=== PATIENT | female | born 1985 | race Caucasian/White ===

== ENCOUNTER 2017-09-09 09:04 | Inpatient (IN) | payer OTHER ==
--- NOTE | 2017-09-09 09:16 | PDOC ---
Attending Attestation - HPI HPI: 09/09/17 11:04 The patient is a 32 year old female with no significant PMH who presents to the emergency department with 10/10 rectal pain and abdominal pain since yesterday noon. The patient denies chest pain, headache and dizziness. Denies nausea, vomit, diarrhea and constipation. Allergies: NKA Past surgical history: None reported Social history: No reported alcohol, cigarette or drug abuse. PCP: Dr. Quiles RFID SPECIALIST: Dr. Zambrano - Physicial Exam PE: 09/09/17 11:05 Vitals: Triage Vital signs reviewed General Appearance: no acute distress, well nourished well developed, Head: Atraumatic, normocephalic Neck: Supple;No Nuchal rigidity Chest Wall: Nontender Cardiac: Regular rate and rhythm, no murmurs, no rubs, no gallops, Lungs: Clear to auscultation bilateral, good air movement bilaterally, Abdomen: Soft, nondistended, normal bowel sounds, nontender to palpation Rectal: (+) Tender to palpation. Pelvic: (+) CMT with discharge. Extremities: Full range of motion to all extremities, no cyanosis, clubbing, or edema Skin: Warm and dry, no rashes or lesions, no petechiae Neuro: AOX3; Cranial Nerves 2-12 grossly intact. Psych: normal mood, normal affect - Medical Decision Making 09/09/17 11:13 Labs: CBC, Chlamydia/GC amplification, Differential stat, HCG, Lactic acid Stat , UA, Urine microscopic CT Scan: Abdomen and pelvis CT w/ contrast Medications: Cefoxitin Sodium, Doxycycline, Morphine, Sodium chloride <Katty Rivera - Last Filed: 09/09/17 11:04> - ED Attending Attestation I have performed the following: I have examined & evaluated the patient, The case was reviewed & discussed with the resident, I agree w/resident's findings & plan, Exceptions are as noted - Medical Decision Making 09/09/17 18:43 History and examination consistent with PID secondary to infected IUD IUD removed in the emergency department given fever elevated white blood cell count patient started on empiric antibiotics with doxycycline and cefoxitin Patient's [employer] aware Admitted to medicine for further management. <Florentin West - Last Filed: 09/09/17 18:43>
--- NOTE | 2017-09-09 09:28 | PDOC ---
History of Present Illness - General Chief Complaint: Pain, Acute Stated Complaint: PAIN Time Seen by Provider: 09/09/17 09:12 History Source: Patient - History of Present Illness Initial Comments: 09/09/17 09:26 32F with no PMH presents with 10/10 abdominal pain and rectal pain since yesterday noon. Exacerbated by sitting down and moving bowels and urination. Thinks it's from IUD placed in December. Delivered baby in November. Normal amount of bm or urination, no presence of blood. Last period 2 weeks ago. 09/09/17 09:59 Past History - Past Medical History Allergies/Adverse Reactions: Allergies Allergy/AdvReac Type Severity Reaction Status Date / Time No Known Allergies Allergy Verified 09/09/17 09:05 Home Medications: Ambulatory Orders NK [No Known Home Medication] 09/09/17 Asthma: No Cancer: No Cardiac Disorders: No COPD: No DVT: No Diabetes: No HTN: No Seizures: No Thyroid Disease: No - Immunization History Immunization Up to Date: Yes - Suicide/Smoking/Psychosocial Hx Smoking History: Never smoked Have you smoked in the past 12 months: No Information on smoking cessation initiated: No Hx Alcohol Use: No Drug/Substance Use Hx: No Substance Use Type: None Hx Substance Use Treatment: No Review of Systems - Review of Systems Constitutional: No: Symptoms Reported HEENTM: No: Symptoms Reported Respiratory: No: Symptoms reported Cardiac (ROS): No: Symptoms Reported ABD/GI: Yes: Abd. Pain w/ defecation, Blood Streaked Bowels, Abdominal cramping. No: Abdominal Distended, Constipated, Diarrhea, Rectal Bleeding, Tarry Stools : No: Dysuria, Discharge, Frequency Musculoskeletal: No: Symptoms Reported Integumentary: No: Symptoms Reported All Other Systems: Reviewed and Negative *Physical Exam - Vital Signs Last Vital Signs Temp Pulse Resp BP Pulse Ox 98.2 F 127 H 16 116/72 99 09/09/17 09:07 09/09/17 09:07 09/09/17 09:07 09/09/17 09:07 09/09/17 09:07 - Physical Exam General Appearance: Yes: Nourished, Appropriately Dressed, Moderate Distress, Thin HEENT: positive: EOMI, GLENNY, Normal ENT Inspection Neck: negative: Tender Respiratory/Chest: positive: Lungs Clear, Normal Breath Sounds. negative: Chest Tender, Respiratory Distress Cardiovascular: positive: Regular Rate, S1, S2, Tachycardia Female Pelvic Exam: positive: normal external exam, discharge (cervical purulent discharge), uterus (hard ). negative: cervical os closed (1-2mm open) , vaginal bleeding Gastrointestinal/Abdominal: positive: Tender (diffusely, kiara. LLQ), Soft, Rebound, Tenderness Rectal Exam: positive: hemorrhoids Extremity: positive: Normal Capillary Refill Integumentary: positive: Normal Color, Dry, Warm Neurologic: positive: Fully Oriented, Alert, Normal Mood/Affect, Respond to painful stimul ED Treatment Course - LABORATORY CBC & Chemistry Diagram: 09/09/17 10:00 09/09/17 10:00 Medical Decision Making - Medical Decision Making 09/09/17 12:21 32F present with severe 10/10 lower abdominal pain and purulent cervical discharge. This is likely PID 2/2 IUD-borne infection. CBC, CMP septic set ordered UA IUD removed, with large quantities of pus present. Ct abdomen: Free fluid and cystic changes within the pelvis. PID is suspected and a follow- up pelvic sonogram is recommended. 09/09/17 14:[address] Antony, as her obgyn dr. Zambrano is unavailable. Admit to inpatient on IV antibiotics. 09/09/17 14:03 09/09/17 14:15 *DC/Admit/Observation/Transfer Diagnosis at time of Disposition: Acute PID (pelvic inflammatory disease) - Discharge Dispostion Admit: Yes - Referrals - Patient Instructions - Post Discharge Activity
[2017-09-09] MEDS ORDERED: morphine CARPU-JECT 4 MG/1 ML DISP.SYRIN IVPUSH ONE (09:40)
[2017-09-09 09:53] LABS: URINE APPEARANCE SLCLOUDY; URINE BILIRUBIN NEGATIVE (NEGATIVE); URINE BLOOD NEGATIVE (NEGATIVE); URINE COLOR YELLOW; URINE GLUCOSE (UA) NEGATIVE (NEGATIVE); URINE KETONE NEGATIVE (NEGATIVE); URINE NITRITE NEGATIVE (NEGATIVE); URINE UROBILINOGEN NEGATIVE mg/dL (0.2-1.0)
[2017-09-09 09:55] LABS: URINE PROTEIN 1+ (NEGATIVE)
[2017-09-09 09:57] LABS: URINE MUCUS RARE; URINE RBC 1 /hpf (0-3); URINE WBC 1 /hpf (3-5)
[2017-09-09] MEDS ORDERED: morphine SULFATE 4 MG/ML VIAL ONE (10:00)
[2017-09-09 10:15] LABS: MCH 27.1 pg (25.7-33.7); MCHC 32.2 g/dl (32.0-36.0); MEAN CELL VOLUME 84.4 fl (80-96); MEAN PLT VOLUME 8.1 fl (7.5-11.1); PLATELET COUNT 376 K/MM3 (134-434); RDW 13.1 % (11.6-15.6); WHITE BLOOD COUNT 24.7 K/mm3 (4.0-10.0)
[2017-09-09] MEDS ORDERED: cefOXitin SODIUM 2 GM VIAL (RESTRICTED TO ID) IVPB ONE (10:18)
[2017-09-09] MEDS ORDERED: DOXYCYCLINE INJECTION 100 MG in DEXTROSE 5%-WATER - 100 ML IVPB ONE (10:18)
[2017-09-09 10:37] LABS: ALBUMIN 3.4 g/dl (3.4-5.0); ALK PHOS 85 U/L (45-117); ANION GAP 8 (8-16); BILIRUBIN,TOTAL 0.5 mg/dL (0.2-1.0); CALCIUM 8.3 mg/dL (8.5-10.1); CO2 25 mmol/L (21-32); CREATININE 0.7 mg/dL (0.55-1.02); GLUCOSE,RANDOM 105 mg/dL (74-106); SGOT/AST 12 U/L (15-37); TOT PROT 7.7 g/dl (6.4-8.2)
[2017-09-09 10:48] LABS: SGPT/ALT 19 U/L (12-78)
[2017-09-09] MEDS ORDERED: ACETAMINOPHEN 325 MG TABLET (FP) ONE (11:03)
[2017-09-09] MEDS ORDERED: SODIUM CHLORIDE 2,000 ML IV STA (11:04)
[2017-09-09 11:12] LABS: TOTAL CELLS COUNTED 100
[2017-09-09 11:13] LABS: PLATELET ESTIMATE ADEQUATE
[2017-09-09 11:47] LABS: INR 1.26 (0.82-1.09); PROTHROMBIN TIME (PATIENT) 14.2 SEC (9.98-11.88)
[2017-09-09 11:49] LABS: ACTIVATED PTT 33.6 SECONDS (26.9-34.4)
[2017-09-09 14:23] LABS: URINE LEUK ESTERASE Negative (NEGATIVE)
[2017-09-09] MEDS ORDERED: SODIUM CHLORIDE 1,000 ML IV STA (14:25)
--- NOTE | 2017-09-09 14:35 | HP ---
CHIEF COMPLAINT: abdominal pain PCP: HISTORY OF PRESENT ILLNESS: 32 year old female presents to the emergency room with complaints of severe pelvic/abdominal and rectal pain 8/10, sharp, non radiating and fever, chills since last night. Patient denies GODOY, n, v, cp, sob, n/v/d, vaginal discharge/ odor, vaginal bleed. Patient had an IUD placed in January 2017. She does endorse mild abdominal pain for the past two months. She went to her [facility], for abdominal pain, no intervention at that time. ER course was notable for: Febrile with leukocytosis. ED resident removed IUD. As per resident there was purulent, foul discharge coming out of vagina. Patient received IVF, and IV antibiotics cefoxitin and doxycycline. 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 Absent: diaphoresis, generalized weakness, malaise, loss of appetite, weight change HEENT: Absent: rhinorrhea, nasal congestion, throat pain, throat swelling, difficulty swallowing, mouth swelling, ear pain, eye pain, visual changes CARDIOVASCULAR: Absent: chest pain, syncope, palpitations, irregular heart rate, lightheadedness , peripheral edema RESPIRATORY: Absent: cough, shortness of breath, dyspnea with exertion, orthopnea, wheezing, stridor, hemoptysis GASTROINTESTINAL: Positive: abdominal pain; Absent: abdominal distension, nausea, vomiting, diarrhea, constipation, melena , hematochezia GENITOURINARY: Absent: dysuria, frequency, urgency, hesitancy, hematuria, flank pain, genital pain MUSCULOSKELETAL: Absent: myalgia, arthralgia, joint swelling, back pain, neck pain SKIN: Absent: rash, itching, pallor HEMATOLOGIC/IMMUNOLOGIC: Absent: easy bleeding, easy bruising, lymphadenopathy, frequent infections ENDOCRINE: Absent: unexplained weight gain, unexplained weight loss, heat intolerance, cold intolerance NEUROLOGIC: Absent: headache, focal weakness or paresthesias, dizziness, unsteady gait, seizure, mental status changes, bladder or bowel incontinence PSYCHIATRIC: Absent: anxiety, depression, suicidal or homicidal ideation, hallucinations. PHYSICAL EXAMINATION Vital Signs - 24 hr 09/09/17 09/09/17 09:07 11:01 Temperature 98.2 F 102.2 F H Pulse Rate 127 H Respiratory 16 Rate Blood Pressure 116/72 O2 Sat by Pulse 99 Oximetry (%) GENERAL: Awake, alert, and fully oriented, lethargic HEAD: Normal with no signs of trauma. EYES: Pupils equal, round and reactive to light, extraocular movements intact, sclera anicteric, conjunctiva clear. No lid lag. EARS, NOSE, THROAT: Ears normal, nares patent, oropharynx clear without exudates. Moist mucous membranes. NECK: Normal range of motion, supple without lymphadenopathy, JVD, or masses. LUNGS: Breath sounds equal, clear to auscultation bilaterally. No wheezes, and no crackles. No accessory muscle use. HEART: Regular rate and rhythm, normal S1 and S2 without murmur, rub or gallop. ABDOMEN: Soft, very tender bilateral lower abdomen, not distended, normoactive bowel sounds, no guarding, no rebound, no masses. No hepatomegaly or splenomegaly. MUSCULOSKELETAL: Normal range of motion at all joints. No bony deformities or tenderness. No CVA tenderness. UPPER EXTREMITIES: 2+ pulses, warm, well-perfused. No cyanosis. No clubbing. No peripheral edema. LOWER EXTREMITIES: 2+ pulses, warm, well-perfused. No calf tenderness. No peripheral edema. NEUROLOGICAL: Cranial nerves II-XII intact. Normal speech. Normal gait. PSYCHIATRIC: Cooperative. Good eye contact. Appropriate mood and affect. SKIN: Warm, dry, normal turgor, no rashes or lesions noted, normal capillary refill. Laboratory Results - last 24 hr 09/09/17 09/09/17 09/09/17 09:40 10:00 10:00 WBC 24.7 H D RBC 4.54 Hgb 12.3 Hct 38.3 MCV 84.4 MCH 27.1 MCHC 32.2 RDW 13.1 D Plt Count 376 D MPV 8.1 Total Counted 100 Neutrophils % No Result Required. Neutrophils % (Manual) 69.0 Band Neutrophils % 23.0 Lymphocytes % No Result Required. Lymphocytes % (Manual) 2.0 L Monocytes % (Manual) 6 Platelet Estimate Adequate PT with INR INR PTT (Actin FS) Sodium 137 Potassium 4.3 Chloride 104 Carbon Dioxide 25 Anion Gap 8 BUN 9 Creatinine 0.7 D Creat Clearance w eGFR > 60 Random Glucose 105 Lactic Acid Calcium 8.3 L Total Bilirubin 0.5 AST 12 L ALT 19 Alkaline Phosphatase 85 Total Protein 7.7 Albumin 3.4 Beta HCG, Quant < 1.0 Urine Color Yellow Urine Appearance Slcloudy Urine pH 5.0 Ur Specific [place] 1.027 Urine Protein 1+ H Urine Glucose (UA) Negative Urine Ketones Negative Urine Blood Negative Urine Nitrite Negative Urine Bilirubin Negative Urine Urobilinogen Negative Ur Leukocyte Esterase Negative Urine WBC (Auto) 1 Urine RBC (Auto) 1 Ur Epithelial Cells Rare Urine Mucus Rare Urine HCG, Qual Negative Blood Type Antibody Screen 09/09/17 09/09/17 09/09/17 11:28 11:30 11:30 WBC RBC Hgb Hct MCV MCH MCHC RDW Plt Count MPV Total Counted Neutrophils % Neutrophils % (Manual) Band Neutrophils % Lymphocytes % Lymphocytes % (Manual) Monocytes % (Manual) Platelet Estimate PT with INR 14.20 H INR 1.26 H PTT (Actin FS) 33.6 Sodium Potassium Chloride Carbon Dioxide Anion Gap BUN Creatinine Creat Clearance w eGFR Random Glucose Lactic Acid 0.9 Calcium Total Bilirubin AST ALT Alkaline Phosphatase Total Protein Albumin Beta HCG, Quant Urine Color Urine Appearance Urine pH Ur Specific [place] Urine Protein Urine Glucose (UA) Urine Ketones Urine Blood Urine Nitrite Urine Bilirubin Urine Urobilinogen Ur Leukocyte Esterase Urine WBC (Auto) Urine RBC (Auto) Ur Epithelial Cells Urine Mucus Urine HCG, Qual Blood Type O POSITIVE Antibody Screen Negative ASSESSMENT/PLAN: This is a 32 year old female that presents with abdominal pain and fever, found to be septic secondary to IUD. #severe sepsis secondary to IUD; r/o Pelvic inflammatory disease -IV acess, IVF NS bolus x2;now on NS 125mls/hr -f/u blood cultures -CT abdomen cannot rule out tubo ovarian abscess; -f/u transabdominal and transvaginal ultrasound -[employer] consulted -ID consulted; -ID approved doxycyline 100mg bib IVPB; cefoxitin 2gms q6h; and one time vancomycin 1gm IVPB FEN: Fluids as above Electrolytes wnl Diet: regular VTE: scds Disposition: inpatient med surg Visit type - Emergency Visit Emergency Visit: Yes ED Registration Date: 09/09/17 Care time: The patient presented to the Emergency Department on the above date and was hospitalized for further evaluation of their emergent condition. - New Patient This patient is new to me today: Yes Date on this admission: 09/09/17 - Critical Care Critical Care patient: No
[2017-09-09] MEDS ORDERED: DOXYCYCLINE INJECTION 100 MG in DEXTROSE 5%-WATER - 100 ML IVPB SCH (16:30)
[2017-09-09] MEDS ORDERED: cefOXitin SODIUM 2 GM VIAL (RESTRICTED TO ID) IVPB SCH (16:30)
[2017-09-09 16:39] VITALS: BMI 24.4
[2017-09-09] MEDS ORDERED: VANCOMYCIN 1,000 MG in DEXTROSE 5%-WATER - 250 ML IVPB ONE (16:56)
[2017-09-09] MEDS ORDERED: SODIUM CHLORIDE 1,000 ML IV SCH (17:00)
--- NOTE | 2017-09-09 17:10 | PN ---
Teaching Attending Note Name of Resident: Cecilia Douglas ATTENDING PHYSICIAN STATEMENT Time of evaluation: 3:45 PM I saw and evaluated the patient. I reviewed the resident's note and discussed the case with the resident. I agree with the resident's findings and plan as documented. SUBJECTIVE: Patient seen and examined. currently feels markedly improved, some lower abdominal tenderness but better than before. reports had IUD placed in december after her delivery in November. Had been doing well, except for increased pain with menstruation. Had heavy periods 2 weeks ago. Last night note some pain with heaviness in rectal area with ongoing constant lower abdominal pain, fevers upto 100 prompting her to come to the ED. Was noted with purulent cervical discharge and CT A/P consistent with PID and? abscess. IUD was removed and patient feels much better. Gynecology and ID consulted in the ED OBJECTIVE: Vital Signs Period Temp Pulse Resp BP Sys/Reyna Pulse Ox Last 24 Hr 98.2 F-102.2 F 108-127 16-20 93-116/54-72 98-99 Intake & Output 09/06/17 09/07/17 09/08/17 09/09/17 23:59 23:59 23:59 23:59 Weight 125 lb GENERAL: Awake, alert, and fully oriented, in no acute distress. HEAD: Normal with no signs of trauma. EYES: Pupils equal, round and reactive to light, extraocular movements intact, sclera anicteric, conjunctiva clear. No lid lag. EARS, NOSE, THROAT: Ears normal, nares patent, oropharynx clear without exudates. Moist mucous membranes. NECK: Normal range of motion, supple without lymphadenopathy, JVD, or masses. LUNGS: Breath sounds equal, clear to auscultation bilaterally. No wheezes, and no crackles. No accessory muscle use. HEART: Regular rate and rhythm, normal S1 and S2 ABDOMEN: Soft,tenderness in suprapubic/LLQ/RLQ, non distended, no voluntary or involuntary guarding or rigidity, normoactive bowel sounds, no guarding, no rebound, no masses. MUSCULOSKELETAL: Normal range of motion at all joints. No bony deformities or tenderness. No CVA tenderness. Extremities: 2+ pulses, warm, well-perfused. No calf tenderness. No peripheral edema. Rectal: no active bleed Genital: no cervical discharge noted currently NEUROLOGICAL: Cranial nerves II-XII grossly intact. Normal speech. Gait deferred PSYCHIATRIC: Cooperative. Good eye contact. Appropriate mood and affect. SKIN: Warm, dry, normal turgor, no rashes or lesions noted, normal capillary refill. Home Medication List Medication Instructions Recorded Confirmed Type NK [No Known Home Medication] 09/09/17 09/09/17 History Active Medications Generic Name Dose Route Start Last Admin Trade Name Freq PRN Reason Stop Dose Admin Acetaminophen 650 mg 09/09/17 14:25 Tylenol - PO Q4H PRN FEVER OR PAIN Cefoxitin Sodium 2 gm 09/09/17 16:30 Mefoxin (Restricted To Id) - IVPB Q6H-IV SAMMY Protocol Doxycycline Hyclate 100 mg/ 100 mls @ 50 mls/hr 09/09/17 16:30 Dextrose IVPB BID SAMMY Sodium Chloride 1,000 mls @ 125 mls/hr 09/09/17 17:00 Normal Saline - IV ASDIR SAMMY Vancomycin HCl 1,000 mg/ 250 mls @ 250 mls/hr 09/09/17 16:56 Dextrose IVPB 09/09/17 17:55 ONCE ONE Protocol Laboratory Results - last 24 hr 09/09/17 09/09/17 09/09/17 09:40 10:00 10:00 WBC 24.7 H D RBC 4.54 Hgb 12.3 Hct 38.3 MCV 84.4 MCH 27.1 MCHC 32.2 RDW 13.1 D Plt Count 376 D MPV 8.1 Total Counted 100 Neutrophils % No Result Required. Neutrophils % (Manual) 69.0 Band Neutrophils % 23.0 Lymphocytes % No Result Required. Lymphocytes % (Manual) 2.0 L Monocytes % (Manual) 6 Platelet Estimate Adequate PT with INR INR PTT (Actin FS) Sodium 137 Potassium 4.3 Chloride 104 Carbon Dioxide 25 Anion Gap 8 BUN 9 Creatinine 0.7 D Creat Clearance w eGFR > 60 Random Glucose 105 Lactic Acid Calcium 8.3 L Total Bilirubin 0.5 AST 12 L ALT 19 Alkaline Phosphatase 85 Total Protein 7.7 Albumin 3.4 Beta HCG, Quant < 1.0 Urine Color Yellow Urine Appearance Slcloudy Urine pH 5.0 Ur Specific [place] 1.027 Urine Protein 1+ H Urine Glucose (UA) Negative Urine Ketones Negative Urine Blood Negative Urine Nitrite Negative Urine Bilirubin Negative Urine Urobilinogen Negative Ur Leukocyte Esterase Negative Urine WBC (Auto) 1 Urine RBC (Auto) 1 Ur Epithelial Cells Rare Urine Mucus Rare Urine HCG, Qual Negative Blood Type Antibody Screen 09/09/17 09/09/17 09/09/17 11:28 11:30 11:30 WBC RBC Hgb Hct MCV MCH MCHC RDW Plt Count MPV Total Counted Neutrophils % Neutrophils % (Manual) Band Neutrophils % Lymphocytes % Lymphocytes % (Manual) Monocytes % (Manual) Platelet Estimate PT with INR 14.20 H INR 1.26 H PTT (Actin FS) 33.6 Sodium Potassium Chloride Carbon Dioxide Anion Gap BUN Creatinine Creat Clearance w eGFR Random Glucose Lactic Acid 0.9 Calcium Total Bilirubin AST ALT Alkaline Phosphatase Total Protein Albumin Beta HCG, Quant Urine Color Urine Appearance Urine pH Ur Specific [place] Urine Protein Urine Glucose (UA) Urine Ketones Urine Blood Urine Nitrite Urine Bilirubin Urine Urobilinogen Ur Leukocyte Esterase Urine WBC (Auto) Urine RBC (Auto) Ur Epithelial Cells Urine Mucus Urine HCG, Qual Blood Type O POSITIVE Antibody Screen Negative CT A/P : free fluid and cystic changes in pelvis. Tubo ovarian abscess cannot be ruled out. suspected PID ASSESSMENT AND PLAN: 32 yof with IUD related PID with abscess. -Severe sepsis from PID with abscess in the setting of IUD (23% bandemia, purulent drainage from cervix per ED notes) Plan: ID/Gynecology consulted, case discussed. No surgical plans currently. Cefoxitin/doxycycline with 1 dose of vancomycin. Will add flagyl and discuss with ID. Transabdominal/Transvaginal Ultrasound. Aggressive hydration for severe sepsis. Close hemodynamic monitoring. DVTPPX disposition pending resolution of medical issues. Total admit time spent 65 min.
[2017-09-09] MEDS: SODIUM CHLORIDE 1,000 ML IV SCH (17:49)
[2017-09-09] MEDS: CEFOXITIN SODIUM 2 GM in DEXTROSE 5%-WATER - 100 ML IVPB SCH ×2 (19:02→22:26)
[2017-09-09] MEDS: ACETAMINOPHEN 325 MG TABLET (FP) PO PRN (19:57)
[2017-09-09] MEDS ORDERED: metroNIDAZOLE 250 MG TABLET PO SCH (22:00)
[2017-09-09] MEDS: DOXYCYCLINE INJECTION 100 MG in DEXTROSE 5%-WATER - 100 ML IVPB SCH (22:27)
[2017-09-10] MEDS ORDERED: CEFOXITIN SODIUM 2 GM in DEXTROSE 5%-WATER - 100 ML IVPB ONE ×2 (01:00→07:00)
[2017-09-10] MEDS: SODIUM CHLORIDE 1,000 ML IV SCH ×3 (04:52→16:57)
[2017-09-10] MEDS: ACETAMINOPHEN 325 MG TABLET (FP) PO PRN ×3 (06:00→16:55)
[2017-09-10 07:46] LABS: MCH 27.4 pg (25.7-33.7); MCHC 32.3 g/dl (32.0-36.0); MEAN CELL VOLUME 84.6 fl (80-96); MEAN PLT VOLUME 8.2 fl (7.5-11.1); PLATELET COUNT 398 K/MM3 (134-434); RDW 13.2 % (11.6-15.6); WHITE BLOOD COUNT 21.5 K/mm3 (4.0-10.0)
[2017-09-10 08:44] LABS: TOTAL CELLS COUNTED 100
[2017-09-10 08:45] LABS: PLATELET ESTIMATE ADEQUATE
[2017-09-10 09:00] LABS: ALBUMIN 2.8 g/dl (3.4-5.0); ALK PHOS 86 U/L (45-117); ANION GAP 11 (8-16); BILIRUBIN,TOTAL 0.8 mg/dL (0.2-1.0); CALCIUM 8.1 mg/dL (8.5-10.1); CO2 22 mmol/L (21-32); GLUCOSE,RANDOM 104 mg/dL (74-106); SGOT/AST 11 U/L (15-37); SGPT/ALT 17 U/L (12-78); TOT PROT 7.1 g/dl (6.4-8.2)
[2017-09-10] MEDS: DOXYCYCLINE INJECTION 100 MG in DEXTROSE 5%-WATER - 100 ML IVPB SCH ×2 (09:31→21:50)
--- NOTE | 2017-09-10 11:46 | CONS ---
DATE OF CONSULTATION: 09/10/2017 REASON FOR CONSULTATION: Pelvic pain, fever, rule out PID. CONSULTATION: This patient is a 32-year-old female, 3 para 3 with 2 previous C-sections and 1 normal vaginal delivery, has an IUD since January 2017, sexually active, does not use condom, complaining of pelvic pain and fever for 24 hours. Came to the emergency room with a fever of 102. Has nausea. No vomiting and no diarrhea. Complaining also of yellow vaginal discharge. Her white count on admission was 24,000 with 69 neutrophils and 23 bands. Her urine showed 1 WBC and 1 RBC. Her test was negative. She is presently on IV antibiotic and receiving cefoxitin and doxycycline and Flagyl. PHYSICAL EXAMINATION: General: The patient appeared to be alert, oriented, and does not appear to be toxic. Comfortable, lying in bed. Abdomen: Soft with some mild tenderness with deep palpation in the suprapubic area. No rebound and no distention. Pelvic: External genitalia normal. Vagina with yellowish discharge. Cervix was tender. No gross lesion. Uterus retroverted and was tender to touch. Cul-de-sac was very tender. Both adnexa were tender. No masses are palpable. Her sonogram had showed inflammatory changes with right hydrosalpinx. CT scan has also confirmed rule out tuboovarian abscess. IMPRESSION: Pelvic inflammatory disease, rule out tuboovarian abscess. Had intrauterine device; intrauterine device was removed in the emergency room. Patient presently on antibiotic. RECOMMENDATION: To continue present antibiotic, ID consultation, and, pending blood culture and if the fever continues and the patient is symptomatic, drainage of the tuboovarian abscess may be indicated by transcutaneous under CT scan visualization. We will follow this patient with you; thank you for the consultation. ROSALBA GAINES M.D. [id number]
--- NOTE | 2017-09-10 13:55 | PN ---
Teaching Attending Note Name of Resident: . Time of evaluation: 10:35 AM SUBJECTIVE: Patient seen and examined. no fevers/chills. Tolerating PO. No dizziness. Still with some lower abdominal discomfort with BM but overall better. OBJECTIVE: Vital Signs Period Temp Pulse Resp BP Sys/Reyna Pulse Ox Last 24 Hr 98.2 F-102.4 F 99-118 18-20 93-113/54-65 98-99 Intake & Output 09/07/17 09/08/17 09/09/17 09/10/17 23:59 23:59 23:59 23:59 Intake Total 1850 Balance 1850 Weight 125 lb General: lying in bed in no acute distress CVS: S1S2 regular Chest: CTAB, no rales or wheezing Abdomen: soft, lower abdominal tenderness more prominent in RLQ and suprapubic region, no voluntary or involuntary guarding or rigidity, positive bowel sounds extremities no edema Home Medication List Medication Instructions Recorded Confirmed Type NK [No Known Home Medication] 09/09/17 09/09/17 History Active Medications Generic Name Dose Route Start Last Admin Trade Name Alvinq PRN Reason Stop Dose Admin Acetaminophen 650 mg 09/09/17 14:25 09/10/17 11:42 Tylenol - PO 650 mg Q4H PRN Administration FEVER OR PAIN Doxycycline Hyclate 100 mg/ 100 mls @ 50 mls/hr 09/09/17 22:00 09/10/17 09:31 Dextrose IVPB 50 mls/hr BID SAMMY Administration Cefoxitin Sodium 2 gm/ 100 mls @ 200 mls/hr 09/10/17 15:00 Dextrose IVPB Q6H-IV SAMMY Sodium Chloride 1,000 mls @ 150 mls/hr 09/09/17 17:21 09/10/17 09:30 Normal Saline - IV 150 mls/hr ASDIR SAMMY Administration CT A/P : suspicious for PID, cannot r/o tubo ovarian abscess Transvaginal/Transabdominal pelvic ultrasound : suspicious for PID, enlarged left adnexa, suspicous for hydro/pyosalpinx ASSESSMENT AND PLAN: 32 yof with IUD related PID with sepsis and likley tubo-ovarina abscess. -Severe sepsis from PID with likely tubo-ovarian abscess Plan: Some improvement. Cefoxitin/doxycycline day 1. No need for Flagyl as discussed with ID, follow up recs. Transabdominal/transvaginal ultrasound noted. Follow gonorrhea/chlamydia studies. GYnecology input appreciated. Plan for CT guided drainage if persistently tender and fails to improve. Aggressive hydration for severe sepsis. Close hemodynamic monitoring. DVTPPX disposition pending resolution of medical issues. Plan discussed with patient in detail, all questions answered.
--- NOTE | 2017-09-10 14:15 | PN ---
Progress Note (short form) - Note Progress Note: ID Consult dictated PID, possible TOA S/P removal IUD Fever/ leukocytosis Await blood c/s No uterine c/s sent (? IUD sent for path/ culture - R/O actinomyces) Check GC/ Chlamydia HIV testing Empiric cefoxitin/ doxycycline
[2017-09-10] MEDS ORDERED: cefOXitin SODIUM 2 GM VIAL (RESTRICTED TO ID) IVPB SCH (14:30)
--- NOTE | 2017-09-10 14:50 | CONS ---
DATE OF CONSULTATION: DATE OF DICTATION: 09/10/2017 The patient is a 32-year-old previously healthy female who was evaluated for pelvic inflammatory disease. The patient had an IUD inserted in January 2017. She was admitted to the hospital on September 09, 2017, with a 1-day history of worsening abdominal and rectal pain. She reported "10/10" abdominal and rectal pain, which was exacerbated by sitting, urinating, and defecating. She presented to the emergency room, where a pelvic examination revealed cervical motion tenderness and gross purulence. She was found to have fever to 102.4 and a markedly elevated white blood cell count. The IUD was removed in the emergency room and a large amount of pus was drained from the uterus. She was empirically treated with cefoxitin, doxycycline, and vancomycin. Blood cultures were obtained; however, no uterine culture was sent. It was unclear whether or not the IUD was sent for pathology or culture. PAST MEDICAL HISTORY: Positive for IUD insertion. PAST SURGICAL HISTORY: Status post sections x2. No known allergies. LABORATORY DATA: White count on admission 24,000 with left shift, hematocrit 35.7, platelet count 398. BUN 5, creatinine 1.0. Urinalysis with 1 white cell. Blood and urine cultures pending. PHYSICAL EXAMINATION: General: She is awake and alert, she is ambulatory, she is in no acute distress. She is not acutely toxic-appearing. Vital Signs: Temperature 98.2, temperature maximum 102.4, blood pressure 103/60, pulse 99 and regular, respirations 18 per minute. HEENT: Sclerae anicteric. Heart Sounds: S1, S2. Lungs: Clear. Abdomen: Soft. There is some mild suprapubic tenderness. Extremities: Negative for edema. IMPRESSION: 1. Pelvic inflammatory disease, possible tuboovarian abscess. 2. Status post removal of intrauterine device. 3. Fever, leukocytosis, possible sepsis. Await culture results. If possible, would obtain vaginal culture as well as culture of the IUD (concerned about the possibility of actinomyces related to her IUD). Check gonorrhea and chlamydia probes, HIV testing. Continue empiric cefoxitin and doxycycline. 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 Thank you for the kind referral. SAURABH CASTRO M.D. [id number]
[2017-09-10] MEDS ORDERED: CEFOXITIN SODIUM 2 GM in DEXTROSE 5%-WATER - 100 ML IVPB SCH (15:00)
[2017-09-10] MEDS: CEFOXITIN SODIUM 2 GM in DEXTROSE 5%-WATER - 100 ML IVPB SCH ×2 (16:56→20:57)
[2017-09-11] MEDS: ACETAMINOPHEN 325 MG TABLET (FP) PO PRN (00:12)
[2017-09-11] MEDS: CEFOXITIN SODIUM 2 GM in DEXTROSE 5%-WATER - 100 ML IVPB SCH ×4 (02:37→21:01)
[2017-09-11] MEDS: SODIUM CHLORIDE 1,000 ML IV SCH ×2 (02:42→15:35)
[2017-09-11 07:38] LABS: BASOPHIL 0.7 % (0-2.0); EOSINOPHIL 0.8 % (0-4.5); MCH 27.6 pg (25.7-33.7); MCHC 32.8 g/dl (32.0-36.0); MEAN CELL VOLUME 84.2 fl (80-96); MEAN PLT VOLUME 8.1 fl (7.5-11.1); NEUTROPHILS 83.2 % (42.8-82.8); PLATELET COUNT 365 K/MM3 (134-434); RDW 13.5 % (11.6-15.6); WHITE BLOOD COUNT 18.7 K/mm3 (4.0-10.0)
--- NOTE | 2017-09-11 08:14 | PN ---
Physical Exam: SUBJECTIVE: Patient seen and examined at bedside. This is a 32 year old female who initially presented for pelvic and abdominal pain as well as rectal pain and fever. In the emergency room, the resident removed an IUD which then produced foul-smelling, purulent fluid from the cervix. Patient was admitted for treatment of sepsis due to pelvic inflammatory disease. Today she feels symptomatically improved. She states that she had a fever last night but was given tylenol and felt better. She states that she has some very little, residual lower abdominal pain with no associated nausea/vomiting/diarrhea. OBJECTIVE: Vital Signs Period Temp Pulse Resp BP Sys/Reyna Pulse Ox Last 24 Hr 98.2 F-100.0 F 99-111 18-20 103-128/60-88 97-99 GENERAL: The patient is awake, alert, and fully oriented, in no acute distress. HEAD: Normal with no signs of trauma. EYES: PERRL, extraocular movements intact, sclera anicteric, conjunctiva clear. No ptosis. ENT: Ears normal, nares patent, oropharynx clear without exudates, moist mucous membranes. NECK: Trachea midline, full range of motion, supple. LUNGS: Breath sounds equal, clear to auscultation bilaterally, no wheezes, no crackles, no accessory muscle use. HEART: Regular rate and rhythm, S1, S2 without murmur, rub or gallop. ABDOMEN: Soft, mildly tender to palpation in the suprapubic region on the left and right side, nondistended, normoactive bowel sounds, no guarding, no rebound, no hepatosplenomegaly, no masses. EXTREMITIES: 2+ pulses, warm, well-perfused, no edema. NEUROLOGICAL: Cranial nerves II through XII grossly intact. Normal speech, gait not observed. PSYCH: Normal mood, normal affect. SKIN: Warm, dry, normal turgor, no rashes or lesions noted Laboratory Results - last 24 hr 09/10/17 09/10/17 09/11/17 06:20 06:20 06:45 WBC 18.7 H RBC 4.02 Hgb 11.1 Hct 33.8 MCV 84.2 MCH 27.6 MCHC 32.8 RDW 13.5 Plt Count 365 MPV 8.1 Total Counted 100 Neutrophils % 83.2 H Neutrophils % (Manual) 84.0 H D Band Neutrophils % 8.0 Lymphocytes % 9.1 D Lymphocytes % (Manual) 6.0 L D Monocytes % 6.2 Monocytes % (Manual) 2 L Eosinophils % 0.8 Basophils % 0.7 Platelet Estimate Adequate Sodium 139 Potassium 3.8 Chloride 106 Carbon Dioxide 22 Anion Gap 11 BUN 5 L D Creatinine 1.0 D Creat Clearance w eGFR > 60 Random Glucose 104 Calcium 8.1 L Total Bilirubin 0.8 D AST 11 L ALT 17 Alkaline Phosphatase 86 Total Protein 7.1 Albumin 2.8 L Active Medications Generic Name Dose Route Start Last Admin Trade Name Freq PRN Reason Stop Dose Admin Acetaminophen 650 mg 09/09/17 14:25 09/11/17 00:12 Tylenol - PO 650 mg Q4H PRN Administration FEVER OR PAIN Doxycycline Hyclate 100 mg/ 100 mls @ 50 mls/hr 09/09/17 22:00 09/10/17 21:50 Dextrose IVPB 50 mls/hr BID SAMMY Administration Sodium Chloride 1,000 mls @ 150 mls/hr 09/09/17 17:21 09/11/17 02:42 Normal Saline - IV 150 mls/hr ASDIR SAMMY Administration Cefoxitin Sodium 2 gm/ 100 mls @ 100 mls/hr 09/10/17 15:00 09/11/17 02:37 Dextrose IVPB 100 mls/hr Q6H-IV SAMMY Administration ASSESSMENT/PLAN: 32 year old female with a past medical history of 2 C sections is admitted for treatment of sepsis due to pelvic inflammatory disease. #Sepsis due to Pelvic Inflammatory Disease: -continue cefoxitin 2gm and doxycycline 100mg (day 2) -tylenol for fevers -Transvaginal US: hyperemic area of R adnexa suspicious for PID, distended tubular structure on L adnexa suspicious for hydro/pyosalpinx -Abdominal CT: findings consistent with PID -f/u blood/urine cultures -f/u chlamydia/gonorrhea -HIV neg -CT-guided drainage if condition worsens -gynecology consultation #FEN: -regular diet -was on NS @ 150, may not need -replete electrolytes as necessary #Prophylaxis: -VTE prophylaxis #Disposition -Continue to monitor on med-surg -full code Visit type - Emergency Visit Emergency Visit: No - New Patient This patient is new to me today: Yes Date on this admission: 09/11/17 - Critical Care Critical Care patient: No
[2017-09-11 08:25] LABS: HIV 1 & 2 AB NEGATIVE; HIV 1 AGp24 NEGATIVE
[2017-09-11 08:30] LABS: ALBUMIN 2.8 g/dl (3.4-5.0); ALK PHOS 88 U/L (45-117); ANION GAP 10 (8-16); BILIRUBIN,TOTAL 0.4 mg/dL (0.2-1.0); CALCIUM 8.7 mg/dL (8.5-10.1); CO2 24 mmol/L (21-32); CREATININE 0.6 mg/dL (0.55-1.02); GLUCOSE,RANDOM 83 mg/dL (74-106); SGOT/AST 16 U/L (15-37); SGPT/ALT 25 U/L (12-78); TOT PROT 6.8 g/dl (6.4-8.2)
[2017-09-11] MEDS ORDERED: PT OWN MED DRAWER 7, Y5N ONE ×2 (08:34→14:27)
[2017-09-11] MEDS: DOXYCYCLINE INJECTION 100 MG in DEXTROSE 5%-WATER - 100 ML IVPB SCH ×2 (10:43→21:59)
--- NOTE | 2017-09-11 14:54 | MSN ---
Progress Note (short form) - Note Progress Note: SUBJECTIVE: Pt seen and examined at bedside. Pt was not in any distress and was resting comfortably. Reports having abdominal pain only with moving bowel or urination. Stated having a fever last night and was given tylenelol for it. Denies any CP, SOB, palpitations, GODOY, dizziness, fever, chills, nausea, vomiting, diarrhea, constipation or any urinary symptoms. OBJECTIVE Last Vital Signs Temp Pulse Resp BP Pulse Ox 99.9 F H 97 H 18 116/75 97 09/11/17 15:17 09/11/17 15:17 09/11/17 15:17 09/11/17 15:17 09/11/17 09:00 GEN: AOX3, NAD HEENT: PERRLA, EOMI CV: RRR S1 S2 tachycardic LUNG: CTA b/l ABD: +bowel sounds, soft, ND, TTP RLQ MSK: pulses and sensation intact; strength wnl NEURO: CN II-XII grossly intact Laboratory Last Values WBC 18.7 K/mm3 (4.0-10.0) H 09/11/17 06:45 RBC 4.02 M/mm3 (3.60-5.2) 09/11/17 06:45 Hgb 11.1 GM/dL (10.7-15.3) 09/11/17 06:45 Hct 33.8 % (32.4-45.2) 09/11/17 06:45 MCV 84.2 fl (80-96) 09/11/17 06:45 MCH 27.6 pg (25.7-33.7) 09/11/17 06:45 MCHC 32.8 g/dl (32.0-36.0) 09/11/17 06:45 RDW 13.5 % (11.6-15.6) 09/11/17 06:45 Plt Count 365 K/MM3 (134-434) 09/11/17 06:45 MPV 8.1 fl (7.5-11.1) 09/11/17 06:45 Total Counted 100 09/10/17 06:20 Neutrophils % 83.2 % (42.8-82.8) H 09/11/17 06:45 Neutrophils % (Manual) 84.0 % (42.8-82.8) H D 09/10/17 06:20 Band Neutrophils % 8.0 % 09/10/17 06:20 Lymphocytes % 9.1 % (8-40) D 09/11/17 06:45 Lymphocytes % (Manual) 6.0 % (8-40) L D 09/10/17 06:20 Monocytes % 6.2 % (3.8-10.2) 09/11/17 06:45 Monocytes % (Manual) 2 % (3.8-10.2) L 09/10/17 06:20 Eosinophils % 0.8 % (0-4.5) 09/11/17 06:45 Basophils % 0.7 % (0-2.0) 09/11/17 06:45 Platelet Estimate Adequate 09/10/17 06:20 PT with INR 14.20 SEC (9.98-11.88) H 09/09/17 11:30 INR 1.26 (0.82-1.09) H 09/09/17 11:30 PTT (Actin FS) 33.6 SECONDS (26.9-34.4) 09/09/17 11:30 Sodium 141 mmol/L (136-145) 09/11/17 06:45 Potassium 4.3 mmol/L (3.5-5.1) 09/11/17 06:45 Chloride 107 mmol/L (98-107) 09/11/17 06:45 Carbon Dioxide 24 mmol/L (21-32) 09/11/17 06:45 Anion Gap 10 (8-16) 09/11/17 06:45 BUN 5 mg/dL (7-18) L 09/11/17 06:45 Creatinine 0.6 mg/dL (0.55-1.02) D 09/11/17 06:45 Creat Clearance w eGFR > 60 (>60) 09/11/17 06:45 Random Glucose 83 mg/dL (74-106) D 09/11/17 06:45 Lactic Acid 0.9 mmol/L (0.4-2.0) 09/09/17 11:28 Calcium 8.7 mg/dL (8.5-10.1) 09/11/17 06:45 Total Bilirubin 0.4 mg/dL (0.2-1.0) D 09/11/17 06:45 AST 16 U/L (15-37) D 09/11/17 06:45 ALT 25 U/L (12-78) D 09/11/17 06:45 Alkaline Phosphatase 88 U/L (45-117) 09/11/17 06:45 Total Protein 6.8 g/dl (6.4-8.2) 09/11/17 06:45 Albumin 2.8 g/dl (3.4-5.0) L 09/11/17 06:45 Beta HCG, Quant < 1.0 mIU/ml 09/09/17 10:00 Urine Color Yellow 09/09/17 09:40 Urine Appearance Slcloudy 09/09/17 09:40 Urine pH 5.0 (5.0-8.0) 09/09/17 09:40 Ur Specific [place] 1.027 (1.001-1.035) 09/09/17 09:40 Urine Protein 1+ (NEGATIVE) H 09/09/17 09:40 Urine Glucose (UA) Negative (NEGATIVE) 09/09/17 09:40 Urine Ketones Negative (NEGATIVE) 09/09/17 09:40 Urine Blood Negative (NEGATIVE) 09/09/17 09:40 Urine Nitrite Negative (NEGATIVE) 09/09/17 09:40 Urine Bilirubin Negative (NEGATIVE) 09/09/17 09:40 Urine Urobilinogen Negative mg/dL (0.2-1.0) 09/09/17 09:40 Ur Leukocyte Esterase Negative (NEGATIVE) 09/09/17 09:40 Urine WBC (Auto) 1 /hpf (3-5) 09/09/17 09:40 Urine RBC (Auto) 1 /hpf (0-3) 09/09/17 09:40 Ur Epithelial Cells Rare /HPF (FEW) 09/09/17 09:40 Urine Mucus Rare 09/09/17 09:40 Urine HCG, Qual Negative 09/09/17 09:40 HIV 1&2 Antibody Screen Negative 09/11/17 06:45 HIV P24 Antigen Negative 09/11/17 06:45 Blood Type O POSITIVE 09/09/17 11:30 Antibody Screen Negative 09/09/17 11:30 Microbiology 09/09/17 10:29 Blood - Peripheral Venous Blood Culture - Preliminary NO GROWTH OBTAINED AFTER 48 HOURS, INCUBATION TO CONTINUE FOR 3 DAYS. 09/09/17 10:29 Blood - Peripheral Venous Blood Culture - Preliminary NO GROWTH OBTAINED AFTER 48 HOURS, INCUBATION TO CONTINUE FOR 3 DAYS. 09/09/17 19:20 Urine - Urine Clean Catch Urine Culture - Final NO GROWTH OBTAINED Home Medications Medication Instructions Recorded NK [No Known Home Medication] 09/09/17 A/P Pt is a 32 y/o F with PMhx of 2 prior C-sections presented to the ED with lower abdominal, pelvic, and rectal pain, was found to be septic secondary to infected IUD. 1. Sepsis secondary to infected IUD and pelvic inflammatory disease -infected IUD removed in the ED -WBC count on presentation 24.7 with 23% bands; improving with WBC of 18.7 and 8.0% bands -CT abd/pelvis: free fluid changes within pelvis, suspected PID, f/u with transabdominal/transvaginal US -transvaginal US: R adnexa - hyperemic area suspicious for PID; L adnexa - distended tubular structure suspicious for hydro/pyo salpinx -continue doxycycline 100 mg BID and cefoxitin 2 gm Q6H (day 2) per ID -tylenelol 650 mg PRN fever -blood and urine cultures neg -f/u gonorrhea/chlamydia studies -MATHEMATICS TECHNICIAN consult - recommends transcutaneous drainage under CT guidance if symptoms persist and based on blood cx 2. FEN -NS @ 150ml/hr -lytes wnl; continue monitoring -regular diet 3. PPx -VTE ppx -No GI ppx Dispo: Continue monitoring Daksha Moreno, MS3
--- NOTE | 2017-09-11 16:21 | PN ---
Progress Note, Physician History of Present Illness: Reports less abdominal pain Low grade temps WBC improving slowly Tolerating antibiotics - Current Medication List Current Medications: Active Medications Acetaminophen (Tylenol -) 650 mg PO Q4H PRN PRN Reason: FEVER OR PAIN Last Admin: 09/11/17 00:12 Dose: 650 mg Doxycycline Hyclate 100 mg/ (Dextrose) 100 mls @ 50 mls/hr IVPB BID SAMMY Last Admin: 09/11/17 10:43 Dose: 50 mls/hr Sodium Chloride (Normal Saline -) 1,000 mls @ 150 mls/hr IV ASDIR SAMMY Last Admin: 09/11/17 15:35 Dose: 150 mls/hr Cefoxitin Sodium 2 gm/ (Dextrose) 100 mls @ 100 mls/hr IVPB Q6H-IV SAMMY Last Admin: 09/11/17 14:54 Dose: 100 mls/hr - Objective Vital Signs: Vital Signs Temperature 99.9 F H 09/11/17 15:17 Pulse Rate 97 H 09/11/17 15:17 Respiratory Rate 18 09/11/17 15:17 Blood Pressure 116/75 09/11/17 15:17 O2 Sat by Pulse Oximetry (%) 97 09/11/17 09:00 Constitutional: Yes: No Distress Eyes: Yes: Conjunctiva Clear Cardiovascular: Yes: Regular Rate and Rhythm, S1, S2 Respiratory: Yes: CTA Bilaterally Gastrointestinal: Yes: Normal Bowel Sounds, Soft, Other (mild suprapubic tenderness) Edema: No Labs: CBC, BMP 09/11/17 06:45 09/11/17 06:45 INR, PTT INR 1.26 (0.82-1.09) H 09/09/17 11:30 Assessment/Plan PID/ possible TOA S/P removal of IUD Fever/ leukocytosis Continue cefoxitin/ doxycycline
--- NOTE | 2017-09-11 16:53 | PN ---
Teaching Attending Note Name of Resident: Jermaine Esquivel ATTENDING PHYSICIAN STATEMENT Time of evaluation: 10:20 Am I saw and evaluated the patient. I reviewed the resident's note and discussed the case with the resident. I agree with the resident's findings and plan as documented. SUBJECTIVE: Patient seen and examined. Abdominal symptoms improved, overall feels much better, no new complaints. OBJECTIVE: Vital Signs Period Temp Pulse Resp BP Sys/Reyna Pulse Ox Last 24 Hr 98.3 F-100.0 F 95-111 18-20 106-128/62-88 97-97 Intake & Output 09/08/17 09/09/17 09/10/17 09/11/17 23:59 23:59 23:59 23:59 Intake Total 4350 3100 Balance 4350 3100 Weight 125 lb General: lying in bed in no acute distress ABdomen: soft, RLQ tenderness, none noted today in suprapubic and LLQ regions, no voluntary or involuntary guarding or rigidity, ND, positive bowel sounds Home Medication List Medication Instructions Recorded Confirmed Type NK [No Known Home Medication] 09/09/17 09/09/17 History Active Medications Generic Name Dose Route Start Last Admin Trade Name Freq PRN Reason Stop Dose Admin Acetaminophen 650 mg 09/09/17 14:25 09/11/17 00:12 Tylenol - PO 650 mg Q4H PRN Administration FEVER OR PAIN Doxycycline Hyclate 100 mg/ 100 mls @ 50 mls/hr 09/09/17 22:00 09/11/17 10:43 Dextrose IVPB 50 mls/hr BID SAMMY Administration Sodium Chloride 1,000 mls @ 150 mls/hr 09/09/17 17:21 09/11/17 15:35 Normal Saline - IV 150 mls/hr ASDIR SAMMY Administration Cefoxitin Sodium 2 gm/ 100 mls @ 100 mls/hr 09/10/17 15:00 09/11/17 14:54 Dextrose IVPB 100 mls/hr Q6H-IV SAMMY Administration Microbiology 09/09/17 10:29 Blood - Peripheral Venous Blood Culture - Preliminary NO GROWTH OBTAINED AFTER 48 HOURS, INCUBATION TO CONTINUE FOR 3 DAYS. 09/09/17 10:29 Blood - Peripheral Venous Blood Culture - Preliminary NO GROWTH OBTAINED AFTER 48 HOURS, INCUBATION TO CONTINUE FOR 3 DAYS. 09/09/17 19:20 Urine - Urine Clean Catch Urine Culture - Final NO GROWTH OBTAINED ASSESSMENT AND PLAN: 32 yof with IUD related PID with sepsis and likley tubo-ovarina abscess. -Severe sepsis from PID with likely tubo-ovarian abscess Plan: Continued improvement. Cefoxitin/doxycycline day 2. No need for Flagyl as discussed with ID, follow up recs. Transabdominal/transvaginal ultrasound noted. Follow gonorrhea/chlamydia studies. GYnecology input appreciated. Plan for CT guided drainage if persistently tender and fails to improve. Aggressive hydration for severe sepsis. Close hemodynamic monitoring. DVTPPX disposition pending resolution of medical issues. Plan discussed with patient in detail, all questions answered.
[2017-09-12] MEDS: SODIUM CHLORIDE 1,000 ML IV SCH ×2 (02:43→08:37)
[2017-09-12] MEDS: CEFOXITIN SODIUM 2 GM in DEXTROSE 5%-WATER - 100 ML IVPB SCH ×3 (02:49→14:22)
[2017-09-12] MEDS ORDERED: PT OWN MED DRAWER 7, Y5N ONE ×2 (07:55→13:48)
[2017-09-12 08:02] LABS: ALBUMIN 2.6 g/dl (3.4-5.0); ANION GAP 6 (8-16); CALCIUM 8.2 mg/dL (8.5-10.1); CO2 26 mmol/L (21-32); CREATININE 0.6 mg/dL (0.55-1.02); GLUCOSE,RANDOM 85 mg/dL (74-106); SGOT/AST 11 U/L (15-37); SGPT/ALT 23 U/L (12-78)
[2017-09-12 08:04] LABS: ALK PHOS 84 U/L (45-117); BILIRUBIN,TOTAL 0.4 mg/dL (0.2-1.0); TOT PROT 6.9 g/dl (6.4-8.2)
[2017-09-12 08:07] LABS: BASOPHIL 0.5 % (0-2.0); EOSINOPHIL 2.4 % (0-4.5); MCH 27.7 pg (25.7-33.7); MCHC 33.2 g/dl (32.0-36.0); MEAN CELL VOLUME 83.5 fl (80-96); MEAN PLT VOLUME 8.1 fl (7.5-11.1); PLATELET COUNT 393 K/MM3 (134-434); RDW 13.8 % (11.6-15.6); WHITE BLOOD COUNT 12.1 K/mm3 (4.0-10.0)
[2017-09-12] MEDS: DOXYCYCLINE INJECTION 100 MG in DEXTROSE 5%-WATER - 100 ML IVPB SCH (10:05)
--- NOTE | 2017-09-12 14:19 | MSN ---
Progress Note (short form) - Note Progress Note: SUBJECTIVE: Pt seen and examined at bedside. Pt was not in any distress and was resting comfortably. No complaints at this time and seems to doing well. Denies any CP, SOB, palpitations, GODOY, dizziness, abdominal pain, fever, chills, nausea, vomiting, diarrhea, constipation or any urinary symptoms. OBJECTIVE Last Vital Signs Temp Pulse Resp BP Pulse Ox 98.1 F 95 H 18 117/69 99 09/12/17 08:00 09/12/17 08:00 09/12/17 08:00 09/12/17 08:00 09/12/17 09:00 GEN: AOX3, NAD HEENT: PERRLA, EOMI CV: RRR S1 S2 tachycardic LUNG: CTA b/l ABD: +bowel sounds, soft, ND, NT MSK: pulses and sensation intact; strength wnl NEURO: CN II-XII grossly intact Laboratory Last Values WBC 12.1 K/mm3 (4.0-10.0) H D 09/12/17 06:20 RBC 4.01 M/mm3 (3.60-5.2) 09/12/17 06:20 Hgb 11.1 GM/dL (10.7-15.3) 09/12/17 06:20 Hct 33.5 % (32.4-45.2) 09/12/17 06:20 MCV 83.5 fl (80-96) 09/12/17 06:20 MCH 27.7 pg (25.7-33.7) 09/12/17 06:20 MCHC 33.2 g/dl (32.0-36.0) 09/12/17 06:20 RDW 13.8 % (11.6-15.6) 09/12/17 06:20 Plt Count 393 K/MM3 (134-434) 09/12/17 06:20 MPV 8.1 fl (7.5-11.1) 09/12/17 06:20 Total Counted 100 09/10/17 06:20 Neutrophils % 80.0 % (42.8-82.8) 09/12/17 06:20 Neutrophils % (Manual) 84.0 % (42.8-82.8) H D 09/10/17 06:20 Band Neutrophils % 8.0 % 09/10/17 06:20 Lymphocytes % 11.5 % (8-40) D 09/12/17 06:20 Lymphocytes % (Manual) 6.0 % (8-40) L D 09/10/17 06:20 Monocytes % 5.6 % (3.8-10.2) 09/12/17 06:20 Monocytes % (Manual) 2 % (3.8-10.2) L 09/10/17 06:20 Eosinophils % 2.4 % (0-4.5) D 09/12/17 06:20 Basophils % 0.5 % (0-2.0) 09/12/17 06:20 Platelet Estimate Adequate 09/10/17 06:20 PT with INR 14.20 SEC (9.98-11.88) H 09/09/17 11:30 INR 1.26 (0.82-1.09) H 09/09/17 11:30 PTT (Actin FS) 33.6 SECONDS (26.9-34.4) 09/09/17 11:30 Sodium 141 mmol/L (136-145) 09/12/17 06:20 Potassium 4.2 mmol/L (3.5-5.1) 09/12/17 06:20 Chloride 109 mmol/L (98-107) H 09/12/17 06:20 Carbon Dioxide 26 mmol/L (21-32) 09/12/17 06:20 Anion Gap 6 (8-16) L 09/12/17 06:20 BUN 7 mg/dL (7-18) D 09/12/17 06:20 Creatinine 0.6 mg/dL (0.55-1.02) 09/12/17 06:20 Creat Clearance w eGFR > 60 (>60) 09/12/17 06:20 Random Glucose 85 mg/dL (74-106) 09/12/17 06:20 Lactic Acid 0.9 mmol/L (0.4-2.0) 09/09/17 11:28 Calcium 8.2 mg/dL (8.5-10.1) L 09/12/17 06:20 Total Bilirubin 0.4 mg/dL (0.2-1.0) 09/12/17 06:20 AST 11 U/L (15-37) L D 09/12/17 06:20 ALT 23 U/L (12-78) 09/12/17 06:20 Alkaline Phosphatase 84 U/L (45-117) 09/12/17 06:20 Total Protein 6.9 g/dl (6.4-8.2) 09/12/17 06:20 Albumin 2.6 g/dl (3.4-5.0) L 09/12/17 06:20 Beta HCG, Quant < 1.0 mIU/ml 09/09/17 10:00 Urine Color Yellow 09/09/17 09:40 Urine Appearance Slcloudy 09/09/17 09:40 Urine pH 5.0 (5.0-8.0) 09/09/17 09:40 Ur Specific [place] 1.027 (1.001-1.035) 09/09/17 09:40 Urine Protein 1+ (NEGATIVE) H 09/09/17 09:40 Urine Glucose (UA) Negative (NEGATIVE) 09/09/17 09:40 Urine Ketones Negative (NEGATIVE) 09/09/17 09:40 Urine Blood Negative (NEGATIVE) 09/09/17 09:40 Urine Nitrite Negative (NEGATIVE) 09/09/17 09:40 Urine Bilirubin Negative (NEGATIVE) 09/09/17 09:40 Urine Urobilinogen Negative mg/dL (0.2-1.0) 09/09/17 09:40 Ur Leukocyte Esterase Negative (NEGATIVE) 09/09/17 09:40 Urine WBC (Auto) 1 /hpf (3-5) 09/09/17 09:40 Urine RBC (Auto) 1 /hpf (0-3) 09/09/17 09:40 Ur Epithelial Cells Rare /HPF (FEW) 09/09/17 09:40 Urine Mucus Rare 09/09/17 09:40 Urine HCG, Qual Negative 09/09/17 09:40 C.trachomatis Ampl DNA Negative (Negative) 09/09/17 10:30 HIV 1&2 Antibody Screen Negative 09/11/17 06:45 HIV P24 Antigen Negative 09/11/17 06:45 N. gonorrhoeae (CICI) Negative (Negative) 09/09/17 10:30 Blood Type O POSITIVE 09/09/17 11:30 Antibody Screen Negative 09/09/17 11:30 Microbiology 09/09/17 10:29 Blood - Peripheral Venous Blood Culture - Preliminary NO GROWTH OBTAINED AFTER 48 HOURS, INCUBATION TO CONTINUE FOR 3 DAYS. 09/09/17 10:29 Blood - Peripheral Venous Blood Culture - Preliminary NO GROWTH OBTAINED AFTER 48 HOURS, INCUBATION TO CONTINUE FOR 3 DAYS. 09/09/17 19:20 Urine - Urine Clean Catch Urine Culture - Final NO GROWTH OBTAINED Home Medications Medication Instructions Recorded NK [No Known Home Medication] 09/09/17 A/P Pt is a 32 y/o F with PMhx of 2 prior C-sections presented to the ED with lower abdominal, pelvic, and rectal pain, was found to be septic secondary to infected IUD. 1. Sepsis secondary to infected IUD and pelvic inflammatory disease -infected IUD removed in the ED -WBC count on presentation 24.7 with 23% bands; improving with WBC of 12.7 and 8.0% bands -CT abd/pelvis: free fluid changes within pelvis, suspected PID, f/u with transabdominal/transvaginal US -transvaginal US: R adnexa - hyperemic area suspicious for PID; L adnexa - distended tubular structure suspicious for hydro/pyo salpinx -blood and urine cultures neg -gonorrhea/chlamydia studies neg -tubo-ovarian abscess seems less likely because of clinical improvement - no fever, WBC count decreased, blood cx neg, symptoms resolved; transcutaneous drainage under CT guidance is not being considered at this time -substitute PO augmentin/doxycycline for 10 days for IV doxycycline/ cefoxitin (day 4) 2. FEN -NS @ 150ml/hr -lytes wnl; continue monitoring -regular diet 3. PPx -VTE ppx -No GI ppx Dispo: Can be discharged Daksha Moreno, MS3
[2017-09-12 14:26] VITALS: BP 125/66; PULSE 86; TEMP 98.3
--- NOTE | 2017-09-12 16:06 | PN ---
Progress Note, Physician History of Present Illness: Reports less abdominal pain Temps down Afebrile WBC improved BC (-) GC/Chlamydia (-) Tolerating antibiotics - Current Medication List Current Medications: Active Medications Acetaminophen (Tylenol -) 650 mg PO Q4H PRN PRN Reason: FEVER OR PAIN Last Admin: 09/11/17 00:12 Dose: 650 mg Doxycycline Hyclate 100 mg/ (Dextrose) 100 mls @ 50 mls/hr IVPB BID SAMMY Last Admin: 09/12/17 10:05 Dose: 50 mls/hr Sodium Chloride (Normal Saline -) 1,000 mls @ 150 mls/hr IV ASDIR SAMMY Last Admin: 09/12/17 08:37 Dose: 150 mls/hr Cefoxitin Sodium 2 gm/ (Dextrose) 100 mls @ 100 mls/hr IVPB Q6H-IV SMAMY Last Admin: 09/12/17 14:22 Dose: 100 mls/hr - Objective Vital Signs: Vital Signs Temperature 98.3 F 09/12/17 14:24 Pulse Rate 86 09/12/17 14:24 Respiratory Rate 18 09/12/17 14:24 Blood Pressure 125/66 09/12/17 14:24 O2 Sat by Pulse Oximetry (%) 99 09/12/17 09:00 Constitutional: Yes: No Distress Eyes: Yes: Conjunctiva Clear Cardiovascular: Yes: Regular Rate and Rhythm, S1, S2 Respiratory: Yes: CTA Bilaterally Gastrointestinal: Yes: Normal Bowel Sounds. No: Tenderness Edema: No Labs: CBC, BMP 09/12/17 06:20 09/12/17 06:20 INR, PTT INR 1.26 (0.82-1.09) H 09/09/17 11:30 Assessment/Plan PID - improved Fever/ leukocytosis resolved Substitute po augmentin / doxycycline x 10d Outpatient [employer] follow up
[2017-09-12] MEDS ORDERED: AMOX TR/POT CLAV 875MG/125MG TABLETS (FP) PO SCH (16:15)
[2017-09-12] MEDS: DOXYCYCLINE HYCLATE 100 MG CAPSULE PO SCH ×2 (16:30→17:38)
--- NOTE | 2017-09-12 16:39 | PN ---
Physical Exam: SUBJECTIVE: Patient seen and examined at bedside. Patient denies any further abdominal pain. Denies fever chills, nausea, vomiting. OBJECTIVE: Vital Signs Period Temp Pulse Resp BP Sys/Reyna Pulse Ox Last 24 Hr 98.1 F-99.6 F 84-95 18-20 109-125/64-72 98-99 GENERAL: The patient is awake, alert, and fully oriented, in no acute distress. HEAD: Normal with no signs of trauma. EYES: PERRL, extraocular movements intact, sclera anicteric, conjunctiva clear. No ptosis. ENT: Ears normal, nares patent, oropharynx clear without exudates, moist mucous membranes. NECK: Trachea midline, full range of motion, supple. LUNGS: Breath sounds equal, clear to auscultation bilaterally, no wheezes, no crackles, no accessory muscle use. HEART: Regular rate and rhythm, S1, S2 without murmur, rub or gallop. ABDOMEN: Soft, mildly tender to palpation in the suprapubic region on the left and right side, nondistended, normoactive bowel sounds, no guarding, no rebound, no hepatosplenomegaly, no masses. EXTREMITIES: 2+ pulses, warm, well-perfused, no edema. NEUROLOGICAL: Cranial nerves II through XII grossly intact. Normal speech, gait not observed. PSYCH: Normal mood, normal affect. SKIN: Warm, dry, normal turgor, no rashes or lesions noted Laboratory Results - last 24 hr 09/09/17 09/12/17 09/12/17 10:30 06:20 06:20 WBC 12.1 H D RBC 4.01 Hgb 11.1 Hct 33.5 MCV 83.5 MCH 27.7 MCHC 33.2 RDW 13.8 Plt Count 393 MPV 8.1 Neutrophils % 80.0 Lymphocytes % 11.5 D Monocytes % 5.6 Eosinophils % 2.4 D Basophils % 0.5 Sodium 141 Potassium 4.2 Chloride 109 H Carbon Dioxide 26 Anion Gap 6 L BUN 7 D Creatinine 0.6 Creat Clearance w eGFR > 60 Random Glucose 85 Calcium 8.2 L Total Bilirubin 0.4 AST 11 L D ALT 23 Alkaline Phosphatase 84 Total Protein 6.9 Albumin 2.6 L C.trachomatis Ampl DNA Negative N. gonorrhoeae (CICI) Negative Active Medications Generic Name Dose Route Start Last Admin Trade Name Freq PRN Reason Stop Dose Admin Acetaminophen 650 mg 09/09/17 14:25 09/11/17 00:12 Tylenol - PO 650 mg Q4H PRN Administration FEVER OR PAIN Amoxicillin/Clavulanate Potassium 1 tab 09/12/17 16:15 09/12/17 16:30 Augmentin - 875mg Tablet PO 1 tab BID@0800,1730 SAMMY Administration Doxycycline Hyclate 100 mg 09/12/17 16:15 09/12/17 16:30 Vibramycin - PO 100 mg BID@1000,1800 SAMMY Administration Sodium Chloride 1,000 mls @ 150 mls/hr 09/09/17 17:21 09/12/17 08:37 Normal Saline - IV 150 mls/hr ASDIR SAMMY Administration IMAGING: -Transvaginal US: hyperemic area of R adnexa suspicious for PID, distended tubular structure on L adnexa suspicious for hydro/pyosalpinx -Abdominal CT: findings consistent with PID ASSESSMENT/PLAN: 32 year old female with a past medical history of 2 C sections is admitted for treatment of sepsis due to pelvic inflammatory disease. #Sepsis due to Pelvic Inflammatory Disease: -D/C cefoxitin 2gm and doxycycline 100mg -start augmentin 875 PO BID, and doxycycline 100mg PO BID -tylenol for fevers -blood/urine cultures negative -chlamydia/gonorrhea negative -HIV neg -gynecology consultation appeciated #FEN: -regular diet -was on NS @ 150, may not need -replete electrolytes as necessary #Prophylaxis: -VTE prophylaxis #Disposition -DC planning -full code Visit type - Emergency Visit Emergency Visit: No - New Patient This patient is new to me today: No - Critical Care Critical Care patient: No
--- NOTE | 2017-09-12 16:54 | PN ---
Teaching Attending Note Name of Resident: Jermaine Esquivel ATTENDING PHYSICIAN STATEMENT I saw and evaluated the patient. I reviewed the resident's note and discussed the case with the resident. I agree with the resident's findings and plan as documented. SUBJECTIVE:states pain has resolved. denies Cp, SOB, fever, chills, N/V/C/D. has never been treated for STD in the past OBJECTIVE: Last Vital Signs Temp Pulse Resp BP Pulse Ox 98.3 F 86 18 125/66 99 09/12/17 14:24 09/12/17 14:24 09/12/17 14:24 09/12/17 14:24 09/12/17 09:00 General NAD CV S1 S2 RRR no murmur/rub/gallop Lungs CTA B/L no wheezing/rales/rhonchi Abdomen soft NT/ND no rebound or guarding ASSESSMENT AND PLAN: 32yo F wtih no PMH presented with abdominal and rectal pain 1. Sepsis due to PID and possible tubo-ovarian abscess- s/p IUD removal in the ER. clinically improved. afebrile. leukcytosis trending down. on Cefoxitin and doxy day 4. Cx negative will speak with ID about duration of therapy and switching to po abx. GC/chlamydia and HIV negative. d/c IVF 2. DVT ppx- hep sq 3. d/c planning pending abx
--- NOTE | 2017-09-12 17:49 | DS ---
Physical Exam: See Dr. Esquivel's note on 09/12/17 for today's progress note including physical exam. HOSPITAL COURSE: Date of Admission:09/09/17 This is a 32 year old female with a past medical history of 2 previous sections presented to the ED with pelvic, abdominal, rectal pain, as well as fevers and chills for 1 day duration. In the ED, she had an intrauterine device removed which produced foul-smelling purulent fluid to secrete from her cervix. The IUD was placed in January of 2017. Patient was febrile in the ED and had a leukocytosis. She was hydrated intravenously and given cefoxitin and doxycycline antibiotic coverage. Patient was admitted for treatment of sepsis due to pelvic inflammatory disease. A transvaginal ultrasound was performed that showed hyperemic area of R adnexa suspicious for PID and a distended tubular structure L adnexa suspicious for hydro/pyosalpinx. A CT abdomen concurrently showed evidence of PID. Patient was treated with antibiotics for 4 days. She consistently improved clinically over the course of 5 days to where her abdominal pain had decreased and she was afebrile for 24 hours. She was discharged on an oral course of antibiotics for 10 days with instructions to follow up with her treating engineer helper within 1 week of discharge. Date of Discharge: 09/12/17 Minutes to complete discharge: 30 Discharge Summary Reason For Visit: ACUTE PELVIC INFLAMMATORY DISEASE Current Active Problems Acute PID (pelvic inflammatory disease) (Acute) Sepsis (Acute) Condition: Improved - Instructions Diet, Activity, Other Instructions: You were treated in the hospital for pelvic inflammatory disease. Your intrauterine device was removed in the emergency department. You were treated with the antibiotics cefoxitin and doxycycline for the infection. Medical Recommendations: -You must take the following antibiotics at home: 1. Augmentin 875mg by mouth twice a day for 10 days 2. Doxycycline 100mg by mouth twice a day for 10 days -Avoid sexual intercourse while you are on antibiotics, and keep in mind that your IUD is no longer in place, which now allows for the possibility of . -Please make an appointment with your Pediatric Physician within 1 week of discharge to discuss your recent hospital course and for contraception options -Please make an appointment with your primary care physician within 1 week of discharge Referrals: Nilo Pitts MD [Staff Physician] - Jeanette Rawls MD [Primary Care Provider] - Disposition: HOME - Home Medications Comprehensive Discharge Medication List: Ambulatory Orders Amox-Tr/K Cl [Augmentin 875-125mg Tablet -] 1 tab PO BID@0800,1730 #20 tablet Doxycycline Hyclate [Vibramycin -] 100 mg PO BID@1000,1800 #20 capsule 09/12/17 This patient is new to me today: No Emergency Visit: No Critical Care patient: No - Discharge Referral Referred to [facility] No
== END 2017-09-12 19:08 | disposition home or self-care (01) | DRG 466 ==
LOC: JER 09:04 → JERBED 14:15 → J6S 16:21
PROVIDERS: ADMIT Hospitalist; ATTEND Internal Medicine
PROC: 0UPDXHZ Removal of Contraceptive Device from Uterus and Cervix, External Approach (ICD-10-PCS; principal; 2017-09-09)
DX: T83.69XA Infection and inflammatory reaction due to other prosthetic device, implant and graft in genital tract, initial encounter (principal); A41.89 Other specified sepsis; N73.8 Other specified female pelvic inflammatory diseases; D72.828 Other elevated white blood cell count; R50.9 Fever, unspecified; N70.93 Salpingitis and oophoritis, unspecified
CPT/HCPCS: 36415; 74177-TC; 76830-TC; 76856-TC; 80053; 81003; 81015; 83605; 84702; 84703; 85025; 85610; 85730; 86850; 86900; 86901; 87040; 87086; 87389; 87491; 87591; 99283-25

== ENCOUNTER 2019-04-15 05:22 | Day surgery (SDC) | payer OTHER ==
[2019-04-08 10:43] VITALS: BMI 25.4
[~2019-04-15 05:22] MED LIST: BUPIVACAINE HCL/PF 0.25% (2.5MG/ML) 10 ML VIAL IJ ONE
[2019-04-15] MEDS ORDERED: SUCCINYLCHOLINE CHLORIDE 200 MG/10 ML SYRINGE ONE (07:15)
[2019-04-15] MEDS ORDERED: MIDAZOLAM HCL 2 MG/2 ML SINGLE DOSE VIAL ONE (07:15)
[2019-04-15] MEDS ORDERED: PROPOFOL 20 ML ONE (07:15)
[2019-04-15] MEDS ORDERED: ROCURONIUM BROMIDE 50 MG/5 ML SYRINGE ONE (07:15)
[2019-04-15] MEDS ORDERED: KETOROLAC TROMETHAMINE 30 MG/1 ML VIAL ONE (07:18)
[2019-04-15] MEDS ORDERED: ceFAZolin SODIUM 1 GM VIAL ONE (07:18)
[2019-04-15] MEDS ORDERED: LIDOCAINE HCL/PF 2% SDV 5ML VIAL ONE (07:18)
[2019-04-15] MEDS ORDERED: SODIUM CHLORIDE 0.9% P/F 10 ML VIAL IJ ONE (07:18)
[2019-04-15] MEDS ORDERED: DEXAMETHASONE SOD PHOSPHATE 4 MG/1 ML VIAL ONE (07:18)
[2019-04-15] MEDS ORDERED: oxyCODONE HCL 5 MG TABLET PO PRN ×2 (07:36)
[2019-04-15] MEDS ORDERED: ONDANSETRON 4 MG/2 ML VIAL IVPUSH PRN (07:36)
[2019-04-15] MEDS ORDERED: BUPIVACAINE HCL/PF 0.25% (2.5MG/ML) 10 ML VIAL ONE (07:45)
[2019-04-15] MEDS ORDERED: LACTATED RINGERS SOLUTION 1,000 ML IV SCH (07:45)
--- NOTE | 2019-04-15 07:46 | HP ---
Admitting History and Physical - Admission Chief Complaint: Desires Permanent Sterilization History of Present Illness: 33yo here for permanent sterilization. Certain she wants no more children. Previously using OCPs for contraception, wishes to discontinue. 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: No: Alzheimer's, CVA, Dementia, Migraine, Multiple Sclerosis, Peripheral Neuropathy, Parkinson's, Seizure, Syncope, TIA, Vertigo, Other Cardiovascular: No: AFIB, Aneurysm, Aortic Insufficiency, Aortic Stenosis, CAD, CHF, Deep Vein Thrombosis, HTN, Hyperlipdemia, DC, Mitral Insufficiency, Mitral Stenosis, Murmur, Pulmonary Hypertension, Other Pulmonary: No: Asthma, Bronchitis, Cancer, COPD, O2 Dependent, Pneumonia, Previously Intubated, Pulmonary Embolus, Pulmonary Fibrosis, Sleep Apnea, Other Gastrointestinal: No: Ascites, Cancer, Constipation, Crohn's Disease, Diverticulitis, Diverticulosis, Esophageal Varices, Gastritis, GERD, GI Bleed, Hemorrhoids, Hiatal Hernia, Inflamatory Bowel Disease, Irritable Bowel Disease, Pancreatitis, Peptic Ulcer Disease, Ulcerative Colitis, Other Hepatobiliary: No: Cirrhosis, Cholelithiasis, Cholecystitis, Choledocholithiasis , Hepatitis A, Hepatitis B, Hepatitis C, Other Renal/: No: Renal Failure, Renal Inusuff, BPH, Cancer, Hematuria, Hemodialysis , Neurogenic Bladder, Renal Calculi, UTI, Other Reproductive: No: Ectopic , Endometriosis, Fibroids, PID, Polycystic Ovary Syndrome, Postmenopausal, Other ...LMP: 03/23/18 ...: No ...: 3 ...Para: 3 Heme/Onc: No: Anemia, B12 Deficiency, Bleeding Disorder, Cancer, Current Chemotherapy, Current Radiation Therapy, Hemochromatosis, Hypercoaguable State, Myeloproliferative Synd, Sickle Cell Disease, Sickle Cell Trait, Thrombocytopenia, Other Infectious Disease: No: AIDS, C-Diff, Herpes Zoster, HIV, MRSA, STD's, Tuberculosis, VREF, Other Psych: No: Addictions, Anxiety, Bipolar, Depression, Panic, Psychosis, Schizophrenia, Other Musculoskeletal: No: Bursitis, Chronic low back pain, Hemiparesis, Hemiplegia, Osteoarthritis, Paraplegia, Other Rheumatology: No: Fibromyalgia, Gout, Lupus, Rheumatoid Arthritis, Sarcoidosis, Vasculitis, Other ENT: No: Allergic Rhinitis, Sinusitis, Other Endocrine: No: Mian's Disease, Estefani's Disease, Diabetes Insipidus, Diabetes Mellitus, Hyperparathyroidism, Hyperthyroidism, Hypothyroidism, Osteopenia, SIADH, Other - Past Surgical History Past Surgical History: Yes: - Smoking History Smoking history: Never smoked Have you smoked in the past 12 months: No - Alcohol/Substance Use Hx Alcohol Use: No History of Substance Use: reports: None - Social History Usual Living Arrangement: Yes: With Spouse ADL: Independent History of Recent Travel: No Home Medications - Allergies Allergies/Adverse Reactions: Allergies Allergy/AdvReac Type Severity Reaction Status Date / Time No Known Allergies Allergy Verified 04/15/19 07:03 - Home Medications Home Medications: Ambulatory Orders Norethindrone AC-Eth Estradiol [Junel] 1 each PO DAILY 04/08/19 Physical Examination Vital Signs: Vital Signs Temperature 98.6 F 04/15/19 07:00 Pulse Rate 70 04/15/19 07:00 Respiratory Rate 20 04/15/19 07:00 Blood Pressure 118/79 04/15/19 07:00 O2 Sat by Pulse Oximetry (%) 100 04/15/19 06:56 Constitutional: Yes: Well Nourished, No Distress, Calm Eyes: Yes: WNL, Conjunctiva Clear, EOM Intact HENT: Yes: WNL, Atraumatic, Normocephalic Neck: Yes: WNL, Supple, Trachea Midline Cardiovascular: Yes: WNL, Regular Rate and Rhythm Respiratory: Yes: WNL, Regular, CTA Bilaterally Gastrointestinal: Yes: WNL, Normal Bowel Sounds Musculoskeletal: Yes: WNL Extremities: Yes: WNL Edema: No Integumentary: Yes: WNL Neurological: Yes: WNL, Alert, Oriented ...Motor Strength: WNL Psychiatric: Yes: WNL Problem List - Problems (1) Admission for sterilization Code(s): Z30.2 - ENCOUNTER FOR STERILIZATION Assessment/Plan 33yo here for LSC bilateral salpingectomy. Risk and alternatives to the procedure reviewed. Risk of anesthesia, bleeding, infection, injury and regret reviewed. Any future childbearing would be by [facility]/ IVF explained to patient. All questions answered, consents signed. Proceed to OR for LSC salpingectomy. Yolanda Bradshaw MD
[2019-04-15] MEDS ORDERED: NEOSTIGMINE METHYLSULFATE 0.5 MG/ML - 10 ML MDV ONE (08:10)
[2019-04-15] MEDS ORDERED: GLYCOPYRROLATE 0.2 MG/1 ML VIAL ONE ×2 (08:11→08:41)
[2019-04-15] MEDS ORDERED: BUPIVACAINE HCL/PF 0.25% (2.5MG/ML) 10 ML VIAL IJ ONE (08:17)
--- NOTE | 2019-04-15 08:57 | SURG ---
Surgery Multiple Punch Press Operator Note Multiple Punch Press Operator: Scott Stewart MD Date of Service: 04/15/19 Diagnosis: for voluntary sterilization Procedure: laparoscopic lysis of adhesions and b/l salpingectomy I was present for the entirety of the operative procedure. For further detail, please refer to operative report.
--- NOTE | 2019-04-15 09:15 | OP ---
Operative Note - Note: Operative Date: 04/15/19 Pre-Operative Diagnosis: Desires Permanent Sterilization Operation: Laparoscopic Bilateral Salpingectomy, Lysis of Adhesions Findings: Normal uterus, omental adhesions to anterior abdominal wall, filmy adhesions on the left fallopian tube to the pelvic side wall and posteriorly, small chocolate cyst seen on left ovary. Normal right fallopian with filmy adhesions to the right pelvic sidewall. Normal Right ovary. Post-Operative Diagnosis: Same as Pre-op Surgeon: Aleja Bradshaw Global Sales Manager: Nilo Stewart Anesthesia: General Specimens Removed: Right and Left fallopian tubes Estimated Blood Loss (mls): 25 Drains, Volume Out (mls): 500 (clear urine) Fluid Volume Replaced (mls): 600 Operative Report Dictated: Yes
[2019-04-15 11:10] VITALS: PULSE 60
[2019-04-15 11:35] VITALS: TEMP 97.8
[2019-04-15 12:15] VITALS: BP 100/60
--- NOTE | 2019-04-15 15:59 | OP ---
DATE OF OPERATION: 04/15/2019 PREOPERATIVE DIAGNOSIS: Desires permanent sterilization. POSTOPERATIVE DIAGNOSIS: Desires permanent sterilization. PROCEDURE: Laparoscopic bilateral salpingectomy, lysis of adhesions. IV FLUIDS: 600. ESTIMATED BLOOD LOSS: 25. URINE OUTPUT: 500 mL of clear urine at the end of the procedure. SURGEON: Vanessa Warren MD TRUCK DRIVER'S OFFSIDER: Dr. Tima Stewart FINDINGS: Omental adhesions to the anterior abdominal wall, obstructing vision. Filmy adhesions on the left pelvic sidewall involving the fallopian tube to the sidewall and posteriorly to the cul-de-sac, small suspected chocolate cyst on the left ovary, right fallopian tube with filmy adhesions to the right pelvic sidewall, normal right ovary. COMPLICATIONS: None. CONDITION: Stable to recovery room. NATURE OF THE PROCEDURE: After the appropriate consents were signed, patient was taken to the operating room. General anesthesia was administered. She was placed in dorsal lithotomy position. The abdomen was prepped and draped in normal sterile fashion. A sterile Wynn catheter was inserted into the bladder. Then 2 mL of 0.25% Marcaine was injected into the umbilicus after a timeout had been performed, confirming the correct patient and procedure. A 5-mm incision was made into the umbilicus to accommodate a 5-mm trocar and scope, which were inserted under direct visualization. Correct placement was confirmed. The abdomen was insufflated with gas. The patient was placed in Trendelenburg position. A left lower quadrant 5 -mm port was inserted under direct visualization without difficulty. Marcaine 0.25 % was then injected into the right lower quadrant to accommodate another 5-mm scope, which was then also inserted under direct visualization without difficulty. Using the LigaSure device, the anterior abdominal wall adhesions had to be taken down to allow for sufficient visualization for the remaining of the case. The adhesions were noted to be clear and free of any bowel and were taken down in progressive bites of the LigaSure device. No bleeding ensued from the remaining bite sites. Attention was then paid to the pelvis, which was further inspected. There were thin filmy adhesions from the patient's left fallopian tube to the pelvic sidewall and then posteriorly to the cul-de-sac. Using gentle retraction, the posterior adhesions were taken down using traction and a LigaSure device. The pelvic sidewall adhesions were taken down with the LigaSure device. The fallopian tube was then ligated and freed using the LigaSure device with progressive bites along the mesosalpinx and then again at its transsection to the uterus. Bite sites were noted to be hemostatic. Attention was then paid to the patient's right fallopian tube, which the adhesions to the pelvic sidewall had to be taken down in progressive bites to allow for normal contour to continue with the salpingectomy. Fallopian tube was then regrasped in its normal orientation at the fimbriated edges using the LigaSure device. Progressive bites along the mesosalpinx along the transsection along its insertion to the uterus were then taken with the LigaSure device. Bite sites were noted to be hemostatic. Both fallopian tubes were removed through the patient' s left lower quadrant port. Bite sites for the salpingectomy were noted to be normal. The anterior abdominal wall was also noted to be hemostatic. The patient was taken out of Trendelenburg position. The right and left lower quadrant ports were removed under direct visualization. The umbilical port was then removed without difficulty. The incisions were closed with a 4-0 Biosyn. Bandages were placed. Wynn catheter was removed. All sponge, lap, needle counts were correct x3. The patient did not receive any antibiotic. She was taken from the operating room to the recovery area in stable condition. VANESSA WARREN MD [id number] MTDD
--- NOTE | 2019-04-17 09:55 | PATH ---
Surgical Pathology Report Patient Name: JEAN MARIE SPENCER [facility]. Rec. #: [id number] /Age/Gender: 1985 (Age: 33) / F Account: [id number] Location: [facility] SURGICAL Taken: 04/15/2019 Received: 04/15/2019 Reported: 04/17/2019 Physicians: Aleja Bradshaw Specimen(s) Received A: RIGHT FALLOPIAN TUBE B: LEFT FALLOPIAN TUBE Clinical History Voluntary sterilization Final Diagnosis A. RIGHT FALLOPIAN TUBE, TUBAL LIGATION: COMPLETE CROSS SECTION OF FALLOPIAN TUBE. B. LEFT FALLOPIAN TUBE, TUBAL LIGATION: COMPLETE CROSS SECTION OF FALLOPIAN TUBE. Electronically Signed Karin Danielson M.D. Gross Description A. Received in formalin labeled "right fallopian tube," are 3 portions of fallopian tube ranging from 0.5-2.5 cm in length. The largest portion displays attached fimbria. The outer surfaces are childress-pink with adhesions. Sectioning reveals an unremarkable lumen. Healthcare Administration Intern sections are submitted in 2 cassettes as follows: 1-fimbria; 2-cross sections of fallopian tube. B. Received in formalin labeled "left fallopian tube," is a 5 cm in length portion of fallopian tube. The outer surface is pink-childress with adhesions. No definite fimbria are identified. Separately received within the same container is a 1.5 x 1.2 x 0.3 cm aggregate of childress-brown tissue fragments. Healthcare Administration Intern sections are submitted in 2 cassettes as follows: 1-cross sections of fallopian tube; 2-separately received tissue fragments. /04/15/2019 saudi04/15/2019
== END 2019-04-15 12:17 | disposition home or self-care (01) ==
LOC: JASU-SURG 05:22
PROVIDERS: ATTEND Obstetrics & Gynecology
PROC: 0U574ZZ Destruction of Bilateral Fallopian Tubes, Percutaneous Endoscopic Approach (ICD-10-PCS; principal; 2019-04-15 07:30)
DX: Z30.2 Encounter for sterilization (principal); N73.6 Female pelvic peritoneal adhesions (postinfective)
CPT/HCPCS: 84703; 88302-TC; 94760

== ENCOUNTER 2020-07-27 09:12 | Emergency (ER) | payer OTHER ==
[2020-07-27 09:19] VITALS: BP 132/86; PULSE 64; TEMP 98.1; BMI 24.7
[2020-07-27] MEDS ORDERED: IBUPROFEN 600 MG TABLET (FP) PO ONE ×2 (09:41→09:42)
--- NOTE | 2020-07-27 09:43 | PDOC ---
History of Present Illness - General Chief Complaint: Toothache Stated Complaint: TOOTHACHE Time Seen by Provider: 07/27/20 09:37 History Source: Patient Exam Limitations: No Limitations - History of Present Illness Initial Comments: 07/27/20 09:41 HISTORY OF PRESENT ILLNESS: 35-year-old woman who denies medical history presents emergency department for evaluation of toothache since Monday. Patient is unable to identify any inciting, aggravating or alleviating factors. She denies any fevers or chills but reports the pain does radiate along her right maxilla. No recent travel or sick contacts. PAST MEDICAL HISTORY: Denies past medical history SURGICAL HISTORY: Denies ALLERGIES: No known drug allergies REVIEW OF SYSTEMS General/Constitutional: Denies fever or chills. Denies weakness, weight change. HEENT: See HPI Cardiovascular: Denies chest pain or shortness of breath. Respiratory: Denies cough, wheezing, or hemoptysis. Gastrointestinal: Denies nausea, vomiting, diarrhea or constipation. Denies rectal bleeding. Genitourinary: Denies dysuria, frequency, or change in urination. Musculoskeletal: Denies joint or muscle swelling or pain. Denies neck or back pain. Skin and breasts: Denies rash or easy bruising. Neurologic: Denies headache, vertigo, loss of consciousness, or loss of sensation. Psychiatric: Denies depression or anxiety. Endocrine: Denies increased thirst. Denies abnormal weight change. Hematologic/Lymphatic: Denies anemia, easy bleeding, or history of blood clots. Allergic/Immunologic: Denies hives or skin allergy. Denies latex allergy. PHYSICAL EXAM General Appearance: Well-appearing, appropriately dressed. No apparent distress, no intoxication. HEENT: EOMI, PERRLA, normal ENT inspection, normal voice, TMs normal, pharynx normal. No conjunctival pallor. No photophobia, scleral icterus. No obvious dental caries. No palpable dental abscess noted. There is no discharge or drainage. Tender to palpation along the buccal surface of the right upper gingiva. Neck: Supple. Trachea midline. No tenderness, rigidity, carotid bruit, stridor, lymphadenopathy, or thyromegaly. Integumentary: Appropriate color, dry, warm. No cyanosis, erythema, jaundice or rash Neurologic: systems programmer II-XII intact. Fully oriented, alert. Appropriate mood/affect. Motor strength 5/5. No appreciable EOM palsy, facial droop or sensory deficit. Past History - Medical History Allergies/Adverse Reactions: Allergies Allergy/AdvReac Type Severity Reaction Status Date / Time No Known Allergies Allergy Verified 07/27/20 09:14 Home Medications: Ambulatory Orders Norethindrone AC-Eth Estradiol [Junel] 1 each PO DAILY 04/08/19 Ibuprofen [Motrin -] 600 mg PO QID PRN #28 tablet 04/15/19 Penicillin V Potassium [Pen Vee K -] 500 mg PO QID #28 tablet 07/27/20 Anemia: No Asthma: No Cancer: No Cardiac Disorders: No CVA: No COPD: No CHF: No DVT: No Dementia: No Diabetes: No GI Disorders: No Disorders: No HTN: No Hypercholesterolemia: No Liver Disease: No Seizures: No Thyroid Disease: No - Surgical History Abdominal Surgery: No Appendectomy: No Cardiac Surgery: No Cholecystectomy: No Lung Surgery: No Neurologic Surgery: No Orthopedic Surgery: No - Reproductive History Is Patient Now?: No - Immunization History Immunization Up to Date: Yes - Psycho-Social/Smoking History Smoking History: Never smoked Have you smoked in the past 12 months: No - Substance Abuse Hx (Audit-C & DAST Scrn) How often the patient has a drink containing alcohol: Never Score: In Men: 4 or > Positive; In Women: 3 or > Positive: 0 Screen Result (Pos requires Nsg. Audit-10AR): Negative In the last yr the pt used illegal drug/Rx for NonMed reason: No Score: Yes response is considered Positive: 0 Screen Result (Positive result requires Nsg. DAST-10): Negative *Physical Exam - Vital Signs Last Vital Signs Temp Pulse Resp BP Pulse Ox 98.1 F 64 16 132/86 100 07/27/20 09:15 07/27/20 09:15 07/27/20 09:15 07/27/20 09:15 07/27/20 09:15 Medical Decision Making - Medical Decision Making 07/27/20 09:43 A/P: 35-year-old woman with toothache for 3 days Motrin 600 mg orally now Discharge home with prescription for Pen-Vee K and referral for dentist I discussed the physical exam findings, ancillary test results and final diagnoses with the patient. I answered all of the patient's questions. The patient was satisfied with the care received and felt comfortable with the discharge plan and treatment plan. The patient will call their primary care physician within 24 hours to arrange follow-up and will return to the Emergency Department with any new, persistent or worsening symptoms. Portions of this note have been documented using voice recognition software. As a result, errors may occur in the reconcilement clerk process. Effort has been made to correct all grammatical and reconcilement clerk error, but some may have been missed which may produce sporadic inaccurate reconcilement clerk or nonsensical phrases. 07/27/20 09:43 Discharge - Discharge Information Problems reviewed: Yes Clinical Impression/Diagnosis: Tooth ache Condition: Stable Disposition: HOME - Admission No - Additional Discharge Information Prescriptions: Penicillin V Potassium [Pen Vee K -] 500 mg PO QID #28 tablet - Follow up/Referral - Patient Discharge Instructions Patient Printed Discharge Instructions: DI for Dental Pain Additional Instructions: Rest, drink lots of fluids: Teas, water, soups Saltwater gargles/ keep mouth clean and rinse after each meal May use wet teabag for pain relief to area Avoid hard chewing foods, stick to ice cream, Jell-O, yogurt etc. Tylenol or Motrin for fever and pain Complete all medication as prescribed Call [facility] at [phone] Followup with private physician in one to 2 days as needed Return to emergency department for worsened symptoms, fevers, swelling to face or worsened pain - Post Discharge Activity
--- OUTSIDE RECORDS SUMMARY | 2020-07-27 09:48 | XMS ---
:[address] [facility] Support Name Relationship Address Phone UE Unavailable Unavailable Unavailable KISHA CAVANAUGH PARTNER [address] [place] [address] KISHA CAVANAUGH Unavailable [address] [place] [address] Re-disclosure Warning The records that you are about to access may contain information from federally- assisted alcohol or drug abuse programs. If such information is present, then the following federally mandated warning applies: This information has been disclosed to you from records protected by federal confidentiality rules (42 CFR part 2). The federal rules prohibit you from making any further disclosure of this information unless further disclosure is expressly permitted by the written consent of the person to whom it pertains or as otherwise permitted by 42 CFR part 2. A general authorization for the release of medical or other information is NOT sufficient for this purpose. The Federal rules restrict any use of the information to criminally investigate or prosecute any alcohol or drug abuse patient.The records that you are about to access may contain highly sensitive health information, the redisclosure of which is protected by Article 27-F of the [facility] Public Health law. If you continue you may haveaccess to information: Regarding HIV / AIDS; Provided by facilities licensed or operated by the [facility] Office of Mental Health; or Provided by the [facility] Office for People With Developmental Disabilities. If such information is present, then the following [facility] mandated warning applies: This information has been disclosed to you from confidential records which are protected by state law. State law prohibits you from making any further disclosure of this information without the specific written consent of the person to whom it pertains, or as otherwise permitted by law. Any unauthorized further disclosure in violation of state law may result in a fine or chcf sentence or both. A general authorization for the release of medical or other information is NOT sufficient authorization for further disclosure. Medications Medication Brand Start Product Dose Route Administrative Pharmacy at Indications Reaction Description Data Name Date Form Instructions Instructions Source(s) cetirizine ZyrTEC .0 active ZyrTEC e CW3 hydrochlori Allerg 2019 {tabl Allergy 10 ([place] de 10 MG y 10 12:00: et} [facility] Tablet MG 00 AM Health [Zyrte] EDT Care) ZyrTEC Allergy 10 MG cetirizine ZyrTEC .0 active ZyrTEC e CW3 hydrochlori Allerg 2019 {tabl Allergy 10 ([place] de 10 MG y 10 12:00: et} MG [facility] Oral Tablet MG 00 AM Health [Zyrte] EDT Care) ZyrTEC Allergy 10 MG Insurance Providers Payer name Policy type Policy ID Covered Covered alliance party's Policy P steven / Coverage alliance party ID relationship to [place] Inf ormation type [facility] [id number] SP [id number] NON [facility] [id number] S [id number] 1 Medicaid [facility] [id number] S [id number] [place] Medicaid Medicaid [id number] S [id number] Regular Clinic Visit Dental [id number] S [id number] [employer] Problems, Conditions, and Diagnoses Code Display Name Description Problem Type Effective Dates Data Source(s) J30.2 Seasonal Seasonal allergic Problem 03/02/2020 eCW3 (H udson allergic reaction 12:00:00 AM EDT [facility] reaction Care)
== END 2020-07-27 10:01 | disposition home or self-care (01) ==
LOC: JERFT 09:12
DX: K08.89 Other specified disorders of teeth and supporting structures (principal)
CPT/HCPCS: 99283-25